=== PATIENT | female | born 1985 | race Caucasian/White ===

== ENCOUNTER 2017-03-28 16:51 | Emergency (ER) | payer SELFPAY ==
[~2017-03-28] VITALS: Ht 177.8 cm; Wt 89.8 kg
[2017-03-28 17:09] VITALS: BP 140/94
== END 2017-03-28 21:16 | disposition left against medical advice (07) ==
LOC: ER 17:21
DX: R51 Headache (principal); Z53.21 Procedure and treatment not carried out due to patient leaving prior to being seen by health care provider

== ENCOUNTER 2021-05-15 10:10 | Observation (INO) | payer OTHER ==
[~2021-05-15] VITALS: Ht 30.5 cm; Wt 0.5 kg
[2021-05-15] MEDS ORDERED: cefTRIAXone 1GM/50ML D5W 50 ML IV ONE (12:00)
[2021-05-15 12:29] LABS: Amphetamine Screen, Urine POSITIVE (NEGATIVE); Barbiturate Scree,Urine NEGATIVE (NEGATIVE); Benzodiazephine Screen, Urine NEGATIVE (NEGATIVE); Cannabinoid Screen, Urine POSITIVE (NEGATIVE); Cocaine Screen, Urine NEGATIVE (NEGATIVE); Opiate Scree,Urine NEGATIVE (NEGATIVE); Phencyclidine Screen, Urine NEGATIVE (NEGATIVE)
== END 2021-05-15 14:00 | disposition home or self-care (01) ==
LOC: LDRP 10:10
PROVIDERS: ADMIT Specialist; ATTEND Specialist
DX: O62.9 Abnormality of forces of labor, unspecified (principal); Z3A.35 35 weeks gestation of pregnancy; Z79.899 Other long term (current) drug therapy
CPT/HCPCS: 59025; 76805; 80307; 81002; 96365; G0378; J0696; J7030; 96360; 96361

== ENCOUNTER 2021-06-03 15:01 | Inpatient (IN) | payer MEDICAID, OTHER ==
[~2021-06-03] VITALS: Ht 177.8 cm; Wt 103.0 kg
[2021-06-03] MEDS: LACTATED RINGER'S 1,000 ML IV SCH ×2 (15:16→21:26)
[2021-06-03] MEDS ORDERED: LACTATED RINGER'S 1,000 ML IV ONE (15:30)
[2021-06-03] MEDS ORDERED: ceFAZolin 1GM/50ML 50 ML IV ONE (15:30)
[2021-06-03] MEDS ORDERED: hydrALAZINE HCL 20 MG/ML VL IV ONE (15:45)
[2021-06-03] MEDS ORDERED: TETRACAINE 1% INJ 2 ML VIAL IJ ONE (15:53)
[2021-06-03 16:08] LABS: Basophils # (auto) 0.1 10 ^3/uL (0-0.2); Eosinophils # (auto) 0.1 10 ^3/uL (0-0.8); Hemoglobin 9.8 g/dL (12.2-16.2); Lymphocytes # (auto) 1.7 10 ^3/uL (0.4-5.4)
[2021-06-03 16:09] LABS: Basophils % (auto) 0.9 % (0.0-2.0); Eosinophils % (auto) 0.9 % (0.0-7.0); Hematocrit 29.5 % (36.0-46.0); Lymphocytes % (auto) 15.2 % (10.0-50.0); Mean Corpuscular Hemoglobin 26.2 pg (28.0-32.0); Mean Corpuscular Hgb Conc. 33.1 g/dL (32.0-36.0); Mean Corpuscular Volume 79.1 fL (80.0-100.0); Monocytes # (auto) 0.7 10 ^3/uL (0-1.3); Monocytes % (auto) 5.8 % (0.0-12.0); Neutrophils # (auto) 8.8 10 ^3/uL (1.6-8.6); Neutrophils % (auto) 77.2 % (37.0-80.0); Nucleated Red Blood Cells % 0.1 %; Red Blood Cells 3.73 10^6/uL (4.0-5.20); Red Cell Distribution Width 17.4 % (11.8-14.3); White Blood Cell 11.4 10^3/uL (4.4-10.8)
[2021-06-03 16:10] LABS: Urine Bacteria NONE SEEN /hpf (None Seen); Urine Blood 2+ /uL (Negative); Urine Mucus FEW (None Seen); Urine Specific Gravity 1.032 (1.001-1.035); Urine WBC 2 /hpf (0 - 5)
[2021-06-03] MEDS ORDERED: fentaNYL CITRATE 100 MCG/2 ML VL ONE (16:15)
[2021-06-03] MEDS ORDERED: MORPHINE SULF PF 2 MG/2 ML SYRG ONE (16:15)
[2021-06-03] MEDS ORDERED: ONDANSETRON HCL 4 MG/2 ML VIAL ONE (16:16)
[2021-06-03] MEDS ORDERED: KETOROLAC TROMETH 30 MG/ML 1ML VIAL ONE (16:16)
[2021-06-03] MEDS ORDERED: oxyTOCIN 10 UNIT/ML 10ML VIAL ONE (16:16)
[2021-06-03] MEDS ORDERED: EPINEPHrine HCL 1 MG/1 ML AMP ONE (16:16)
[2021-06-03] MEDS ORDERED: GLYCOPYRROLATE 0.2 MG/ML 1ML VIAL ONE (16:16)
[2021-06-03 16:25] LABS: Albumin 2.1 g/dL (3.4-5.0); Calcium 7.9 mg/dL (8.5-10.1); Potassium 3.8 mmol/L (3.5-5.1)
[2021-06-03 16:26] LABS: Alcohol, Urine < 3.0 mg/dL (0-10); Barbiturate Scree,Urine NEGATIVE (NEGATIVE); Benzodiazephine Screen, Urine NEGATIVE (NEGATIVE); Cannabinoid Screen, Urine POSITIVE (NEGATIVE); Cocaine Screen, Urine NEGATIVE (NEGATIVE); Opiate Scree,Urine NEGATIVE (NEGATIVE); Phencyclidine Screen, Urine NEGATIVE (NEGATIVE)
[2021-06-03 16:28] LABS: Bilirubin, Total 0.7 mg/dL (0.2-1.0); Total Protein 6.2 g/dL (6.4-8.2)
[2021-06-03 16:34] LABS: Amphetamine Screen, Urine POSITIVE (NEGATIVE)
[2021-06-03] MEDS ORDERED: MIDAZOLAM HCL 2MG/2ML 2ml VIAL (1mg/ml) ONE (16:38)
[2021-06-03] MEDS ORDERED: MORPHINE SULFATE 4 MG/ML SYR/VIAL IV PRN (16:45)
[2021-06-03] MEDS ORDERED: NITROGLYCERIN 0.4 MG SL TAB SL PRN (16:45)
[2021-06-03 17:13] LABS: INR 0.92 (0.9-1.15); Partial Thromboplastin Time 23.7 sec (23.0-31.2)
[2021-06-03] MEDS ORDERED: PREN-96 PO (17:36)
[2021-06-03] MEDS ORDERED: HYDROmorphone HCL 2 MG/ML VL IV PRN (17:45)
[2021-06-03] MEDS ORDERED: ceFAZolin 1GM/50ML 50 ML IV SCH (17:45)
[2021-06-03] MEDS ORDERED: GUM (CHEWING) 1 GUM CHEW CHEW ONE (17:45)
[2021-06-03] MEDS ORDERED: ACETAMINOPHEN IV 1000 MG/100ML (10MG/ML) IV PRN (17:45)
[2021-06-03] MEDS ORDERED: ONDANSETRON HCL 4 MG/2 ML VIAL IV PRN ×2 (17:45→18:00)
[2021-06-03] MEDS ORDERED: LACTATED RINGER'S 1,000 ML IV SCH (17:45)
[2021-06-03] MEDS ORDERED: NALOXONE HCL 0.4 MG/ML VIAL IV PRN (18:00)
[2021-06-03] MEDS ORDERED: DexAMETHasone SOD PHOS 10MG/1ML VIAL INJ IV PRN (18:00)
[2021-06-03 20:22] VITALS: BP 156/97
[2021-06-03 21:22] VITALS: BP 173/111
[2021-06-03] MEDS: METOPROLOL TARTRATE 25 MG TAB PO SCH (21:26)
[2021-06-03] MEDS: ATORVASTATIN 20 MG TAB PO SCH (21:26)
[2021-06-03 22:00] VITALS: BP 140/100
[2021-06-03 22:22] VITALS: BP 164/99
[2021-06-03 23:22] VITALS: BP 163/110
[2021-06-03] MEDS: diphenhdrAMINE HCL 50 MG/1 ML VL IV PRN (23:29)
[2021-06-03] MEDS: KETOROLAC TROMETH 30 MG/ML 1ML VIAL IV PRN (23:29)
[2021-06-03] MEDS: ceFAZolin 1GM/50ML 50 ML IV SCH (23:31)
[2021-06-04] VITALS (23 sets, daily range): BP systolic 135–168; BP diastolic 73–127
[2021-06-04 05:06] LABS: Rubella Antibodies, IgG <0.90 index (Immune >0.99)
[2021-06-04] MEDS: diphenhdrAMINE HCL 50 MG/1 ML VL IV PRN (05:35)
[2021-06-04] MEDS: KETOROLAC TROMETH 30 MG/ML 1ML VIAL IV PRN (05:35)
[2021-06-04 05:41] LABS: Basophils # (auto) 0.1 10 ^3/uL (0-0.2); Basophils % (auto) 1.1 % (0.0-2.0); Eosinophils # (auto) 0.1 10 ^3/uL (0-0.8); Hemoglobin 9.6 g/dL (12.2-16.2); Red Cell Distribution Width 17.5 % (11.8-14.3); White Blood Cell 12.3 10^3/uL (4.4-10.8)
[2021-06-04 05:44] LABS: Hematocrit 28.1 % (36.0-46.0); Lymphocytes # (auto) 1.9 10 ^3/uL (0.4-5.4); Lymphocytes % (auto) 15.3 % (10.0-50.0); Mean Corpuscular Hgb Conc. 34.1 g/dL (32.0-36.0); Mean Corpuscular Volume 79.1 fL (80.0-100.0); Monocytes # (auto) 0.7 10 ^3/uL (0-1.3); Monocytes % (auto) 5.8 % (0.0-12.0); Neutrophils # (auto) 9.5 10 ^3/uL (1.6-8.6); Neutrophils % (auto) 76.8 % (37.0-80.0); Nucleated Red Blood Cells % 0.1 %; Red Blood Cells 3.55 10^6/uL (4.0-5.20)
[2021-06-04 07:06] LABS: RPR Non Reactive (Non Reactive)
[2021-06-04] MEDS: LACTATED RINGER'S 1,000 ML IV SCH (07:30)
[2021-06-04] MEDS ORDERED: SIMETHICONE 80 MG CHEWABLE TABLET PO PRN (08:30)
[2021-06-04] MEDS: ceFAZolin 1GM/50ML 50 ML IV SCH ×2 (09:28→15:17)
[2021-06-04] MEDS: ASPirin 81 mg TAB PO SCH (09:29)
[2021-06-04] MEDS: DOCUSATE SOD 100 MG CAP PO SCH ×2 (09:30→21:52)
[2021-06-04] MEDS: METOPROLOL TARTRATE 25 MG TAB PO SCH ×2 (09:30→21:53)
[2021-06-04] MEDS ORDERED: FUROSEMIDE 40 MG/4 ML VIAL IV ONE (12:00)
[2021-06-04] MEDS ORDERED: POTASSIUM CHL 20 Meq TABLET PO ONE (12:00)
[2021-06-04] MEDS: HYDROcodone-ACET 5/325MG TAB PO PRN ×3 (12:23→21:57)
[2021-06-04] MEDS ORDERED: ALBUTEROL SULF 2.5 MG/0.5ML(0.5%) NEB SOLN NEB PRN (13:30)
[2021-06-04] MEDS: MORPHINE SULFATE INJECTION 2 MG/ML SYRG IV PRN (15:17)
[2021-06-04] MEDS ORDERED: CARVEDILOL 3.125 MG TAB PO ONE (17:30)
[2021-06-04] MEDS ORDERED: LISINOPRIL 10 MG TAB PO ONE (17:30)
[2021-06-04] MEDS: hydrALAZINE HCL 20 MG/ML VL IV PRN (17:58)
[2021-06-04] MEDS: ALBUTEROL SULF 2.5 MG/0.5ML(0.5%) NEB SOLN NEB SCH ×2 (19:36→22:58)
[2021-06-04] MEDS: IPRATROPIUM BROM 0.5 MG/2.5ML INH SOL NEB SCH ×2 (19:36→22:58)
[2021-06-04] MEDS: ATORVASTATIN 20 MG TAB PO SCH (21:51)
[2021-06-04] MEDS: CARVEDILOL 3.125 MG TAB PO SCH (22:32)
[2021-06-05] VITALS (30 sets, daily range): BP systolic 115–174; BP diastolic 71–126
[2021-06-05] MEDS: IPRATROPIUM BROM 0.5 MG/2.5ML INH SOL NEB SCH ×6 (02:37→22:21)
[2021-06-05] MEDS: ALBUTEROL SULF 2.5 MG/0.5ML(0.5%) NEB SOLN NEB SCH ×6 (02:37→22:21)
[2021-06-05] MEDS: HYDROcodone-ACET 5/325MG TAB PO PRN ×4 (02:51→20:28)
[2021-06-05] MEDS: hydrALAZINE HCL 20 MG/ML VL IV PRN ×3 (04:52→23:16)
[2021-06-05] MEDS: MORPHINE SULFATE INJECTION 2 MG/ML SYRG IV PRN ×2 (05:01→09:49)
[2021-06-05 05:53] LABS: Basophils # (auto) 0.1 10 ^3/uL (0-0.2); Basophils % (auto) 0.4 % (0.0-2.0); Eosinophils # (auto) 0.1 10 ^3/uL (0-0.8); Monocytes # (auto) 0.7 10 ^3/uL (0-1.3); Nucleated Red Blood Cells % 0.3 %
[2021-06-05 05:57] LABS: Eosinophils % (auto) 0.6 % (0.0-7.0); Hematocrit 28.5 % (36.0-46.0); Hemoglobin 9.7 g/dL (12.2-16.2); Lymphocytes # (auto) 1.4 10 ^3/uL (0.4-5.4); Mean Corpuscular Hemoglobin 26.8 pg (28.0-32.0); Mean Corpuscular Hgb Conc. 34.2 g/dL (32.0-36.0); Mean Corpuscular Volume 78.3 fL (80.0-100.0); Monocytes % (auto) 4.8 % (0.0-12.0); Neutrophils # (auto) 12.9 10 ^3/uL (1.6-8.6); Neutrophils % (auto) 85.2 % (37.0-80.0); Red Blood Cells 3.64 10^6/uL (4.0-5.20); Red Cell Distribution Width 17.9 % (11.8-14.3); White Blood Cell 15.1 10^3/uL (4.4-10.8)
[2021-06-05 06:19] LABS: BUN/Creatinine Ratio 22.5; Calcium 7.5 mg/dL (8.5-10.1); Potassium 3.7 mmol/L (3.5-5.1)
[2021-06-05] MEDS: DOCUSATE SOD 100 MG CAP PO SCH ×2 (09:47→22:20)
[2021-06-05] MEDS: ASPirin 81 mg TAB PO SCH (09:47)
[2021-06-05] MEDS: METOPROLOL TARTRATE 25 MG TAB PO SCH (09:48)
[2021-06-05] MEDS: CARVEDILOL 3.125 MG TAB PO SCH (09:48)
[2021-06-05] MEDS ORDERED: LISINOPRIL 10 MG TAB PO SCH (10:00)
[2021-06-05 10:12] LABS: Basophils # (auto) 0.2 10 ^3/uL (0-0.2); Eosinophils # (auto) 0.1 10 ^3/uL (0-0.8); Hemoglobin 9.6 g/dL (12.2-16.2); Lymphocytes # (auto) 1.5 10 ^3/uL (0.4-5.4); Neutrophils % (auto) 82.8 % (37.0-80.0)
[2021-06-05 10:14] LABS: Basophils % (auto) 1.1 % (0.0-2.0); Eosinophils % (auto) 0.7 % (0.0-7.0); Hematocrit 28.8 % (36.0-46.0); Lymphocytes % (auto) 10.1 % (10.0-50.0); Mean Corpuscular Hemoglobin 26.4 pg (28.0-32.0); Mean Corpuscular Hgb Conc. 33.3 g/dL (32.0-36.0); Mean Corpuscular Volume 79.4 fL (80.0-100.0); Monocytes # (auto) 0.8 10 ^3/uL (0-1.3); Monocytes % (auto) 5.3 % (0.0-12.0); Neutrophils # (auto) 12.6 10 ^3/uL (1.6-8.6); Nucleated Red Blood Cells % 0.3 %; Red Blood Cells 3.62 10^6/uL (4.0-5.20); Red Cell Distribution Width 17.7 % (11.8-14.3); White Blood Cell 15.2 10^3/uL (4.4-10.8)
[2021-06-05] MEDS ORDERED: LISINOPRIL 10 MG TAB PO ONE (10:15)
[2021-06-05 10:35] LABS: Albumin 1.8 g/dL (3.4-5.0); Calcium 7.9 mg/dL (8.5-10.1); Potassium 3.4 mmol/L (3.5-5.1)
[2021-06-05 10:38] LABS: BUN/Creatinine Ratio 17.1; Bilirubin, Total 0.5 mg/dL (0.2-1.0); Total Protein 5.7 g/dL (6.4-8.2)
[2021-06-05 10:45] LABS: INR 0.92 (0.9-1.15); Partial Thromboplastin Time 25.5 sec (23.0-31.2)
[2021-06-05] MEDS ORDERED: FUROSEMIDE 20 MG/2 ML VIAL IV ONE (11:30)
[2021-06-05] MEDS ORDERED: POTASSIUM CHL 20 Meq TABLET PO ONE ×2 (11:30→12:30)
[2021-06-05] MEDS ORDERED: LORazepam 2MG/ML-1ML VIAL IV ONE (11:45)
[2021-06-05] MEDS ORDERED: MAGNESIUM SULFATE 100 ML IV ONE (11:45)
[2021-06-05] MEDS ORDERED: MAGNESIUM SULFATE 40MG/ML 1,000 ML IV SCH (11:45)
[2021-06-05 13:54] LABS: Urine WBC None Seen /hpf (0 - 5)
[2021-06-05] MEDS: SODIUM CHLORIDE 0.9% 1,000 ML IV SCH (14:04)
[2021-06-05 14:09] LABS: Urine Bacteria NONE SEEN /hpf (None Seen); Urine Blood Negative /uL (Negative); Urine Specific Gravity 1.008 (1.001-1.035)
[2021-06-05 14:31] LABS: Protein, Urine 8.9 mg/dL (0.0-11.9)
[2021-06-05 16:13] LABS: Hepatitis A Ab IgM Negative; Hepatitis B Core IgM Negative; Hepatitis B Surface Antigen Negative (Negative); Hepatitis C Antibody Negative (Negative)
[2021-06-05] MEDS: IBUPROFEN 800 MG TAB PO PRN (18:07)
[2021-06-05] MEDS: ATORVASTATIN 20 MG TAB PO SCH (22:20)
[2021-06-05] MEDS: CARVEDILOL 12.5 MG TAB PO SCH (22:20)
[2021-06-06] VITALS (27 sets, daily range): BP systolic 123–159; BP diastolic 75–117
[2021-06-06] MEDS: HYDROcodone-ACET 5/325MG TAB PO PRN ×3 (01:18→21:06)
[2021-06-06] MEDS: IPRATROPIUM BROM 0.5 MG/2.5ML INH SOL NEB SCH ×7 (02:15→22:00)
[2021-06-06] MEDS: ALBUTEROL SULF 2.5 MG/0.5ML(0.5%) NEB SOLN NEB SCH ×7 (02:15→22:00)
[2021-06-06] MEDS: LORazepam 2MG/ML-1ML VIAL IV PRN ×3 (02:28→22:40)
[2021-06-06] MEDS: IBUPROFEN 800 MG TAB PO PRN (03:35)
[2021-06-06 05:10] LABS: Hemoglobin 9.2 g/dL (12.2-16.2); Lymphocytes # (auto) 1.6 10 ^3/uL (0.4-5.4); Monocytes # (auto) 0.8 10 ^3/uL (0-1.3); Neutrophils # (auto) 10.7 10 ^3/uL (1.6-8.6)
[2021-06-06 05:13] LABS: Basophils # (auto) 0.1 10 ^3/uL (0-0.2); Basophils % (auto) 0.8 % (0.0-2.0); Eosinophils # (auto) 0.1 10 ^3/uL (0-0.8); Hematocrit 26.9 % (36.0-46.0); Lymphocytes % (auto) 11.6 % (10.0-50.0); Mean Corpuscular Hemoglobin 27.1 pg (28.0-32.0); Mean Corpuscular Hgb Conc. 34.4 g/dL (32.0-36.0); Mean Corpuscular Volume 78.8 fL (80.0-100.0); Monocytes % (auto) 6.3 % (0.0-12.0); Neutrophils % (auto) 80.3 % (37.0-80.0); Nucleated Red Blood Cells % 0.4 %; Red Blood Cells 3.42 10^6/uL (4.0-5.20); Red Cell Distribution Width 17.9 % (11.8-14.3); White Blood Cell 13.4 10^3/uL (4.4-10.8)
[2021-06-06 05:31] LABS: BUN/Creatinine Ratio 23.8; Calcium 6.8 mg/dL (8.5-10.1); Potassium 4.1 mmol/L (3.5-5.1)
[2021-06-06 06:07] LABS: RPR Non Reactive (Non Reactive)
[2021-06-06] MEDS: hydrALAZINE HCL 20 MG/ML VL IV PRN (08:05)
[2021-06-06] MEDS: DOCUSATE SOD 100 MG CAP PO SCH ×2 (10:27→22:38)
[2021-06-06] MEDS: ASPirin 81 mg TAB PO SCH (10:28)
[2021-06-06] MEDS: CARVEDILOL 12.5 MG TAB PO SCH ×2 (10:29→22:39)
[2021-06-06] MEDS: POTASSIUM CHL 20 Meq TABLET PO SCH (10:44)
[2021-06-06] MEDS: FUROSEMIDE 20 MG/2 ML VIAL IV SCH (10:46)
[2021-06-06] MEDS ORDERED: hydrALAZINE HCL 25 MG TAB ONE (12:10)
[2021-06-06] MEDS ORDERED: NICOTINE 21MG/24 HR TOPICAL PATCH TD ONE (12:15)
[2021-06-06] MEDS ORDERED: hydrALAZINE HCL 25 MG TAB PO ONE (12:15)
[2021-06-06] MEDS: LISINOPRIL 10 MG TAB PO SCH (12:20)
[2021-06-06] MEDS: SODIUM CHLORIDE 0.9% 1,000 ML IV SCH (12:45)
[2021-06-06] MEDS: hydrALAZINE HCL 25 MG TAB PO SCH (22:38)
[2021-06-06] MEDS: ATORVASTATIN 20 MG TAB PO SCH (22:39)
[2021-06-07] MEDS: ALBUTEROL SULF 2.5 MG/0.5ML(0.5%) NEB SOLN NEB SCH ×4 (02:00→14:25)
[2021-06-07] MEDS: IPRATROPIUM BROM 0.5 MG/2.5ML INH SOL NEB SCH ×4 (02:00→14:25)
[2021-06-07] MEDS: HYDROcodone-ACET 5/325MG TAB PO PRN ×2 (02:10→08:57)
[2021-06-07 05:00] VITALS: BP 137/88
[2021-06-07 05:53] LABS: Potassium 3.9 mmol/L (3.5-5.1)
[2021-06-07] MEDS: hydrALAZINE HCL 25 MG TAB PO SCH ×2 (06:01→15:17)
[2021-06-07 06:04] LABS: BUN/Creatinine Ratio 26.8; Calcium 7.4 mg/dL (8.5-10.1)
[2021-06-07] MEDS ORDERED: guaiFENesin-DM 100/10mg/5ml SYR PO PRN (06:45)
[2021-06-07] MEDS: DOCUSATE SOD 100 MG CAP PO SCH (08:56)
[2021-06-07] MEDS: POTASSIUM CHL 20 Meq TABLET PO SCH (08:56)
[2021-06-07] MEDS: ASPirin 81 mg TAB PO SCH (08:56)
[2021-06-07] MEDS: FUROSEMIDE 20 MG/2 ML VIAL IV SCH (08:56)
[2021-06-07] MEDS: CARVEDILOL 12.5 MG TAB PO SCH (08:58)
[2021-06-07] MEDS: LISINOPRIL 10 MG TAB PO SCH (08:58)
[2021-06-07 09:00] VITALS: BP 136/91
[2021-06-07] MEDS ORDERED: NICOTINE 21MG/24 HR TOPICAL PATCH TD SCH (10:00)
[2021-06-07] MEDS: SODIUM CHLORIDE 0.9% 1,000 ML IV SCH (12:45)
[2021-06-07 13:00] VITALS: BP 144/93
[2021-06-07 15:37] VITALS: BP 144/93
[2021-06-07] MEDS: LORazepam 2MG/ML-1ML VIAL IV PRN (15:52)
[2021-06-07 17:00] VITALS: BP_SYST 144; BP_SYST 159; BP_DIAS 104; BP_DIAS 93
== END 2021-06-07 18:00 | disposition short-term general hospital (02) | DRG 540 ==
LOC: LDRP 15:01 → OBSVTOIN 15:30 → TELE-WESTW 20:22
PROVIDERS: ADMIT Specialist; ATTEND Internal Medicine
PROC: 10D00Z1 Extraction of Products of Conception, Low, Open Approach (ICD-10-PCS; principal; 2021-06-03 16:21)
DX: O77.0 Labor and delivery complicated by meconium in amniotic fluid (principal); I21.4 Non-ST elevation (NSTEMI) myocardial infarction; I50.43 Acute on chronic combined systolic (congestive) and diastolic (congestive) heart failure; O99.42 Diseases of the circulatory system complicating childbirth; O99.324 Drug use complicating childbirth; E66.9 Obesity, unspecified; O99.214 Obesity complicating childbirth; D64.9 Anemia, unspecified; I25.10 Atherosclerotic heart disease of native coronary artery without angina pectoris; O34.211 Maternal care for low transverse scar from previous cesarean delivery; O16.4 Unspecified maternal hypertension, complicating childbirth; O99.02 Anemia complicating childbirth; F17.210 Nicotine dependence, cigarettes, uncomplicated; O99.334 Smoking (tobacco) complicating childbirth; O14.94 Unspecified pre-eclampsia, complicating childbirth; O69.81X0 Labor and delivery complicated by cord around neck, without compression, not applicable or unspecified; F19.10 Other psychoactive substance abuse, uncomplicated; Z20.822 Contact with and (suspected) exposure to COVID-19; E78.5 Hyperlipidemia, unspecified; O75.89 Other specified complications of labor and delivery; E87.6 Hypokalemia; Z3A.38 38 weeks gestation of pregnancy; Z37.0 Single live birth; Z91.19 Patient's noncompliance with other medical treatment and regimen; Z95.5 Presence of coronary angioplasty implant and graft
CPT/HCPCS: 36415; 59025; 71045; 80048; 80053; 80061; 80074; 80307; 81001; 81002; 82570; 83735; 83880; 84156; 84484; 84550; 85025; 85379; 85610; 85730; 86592; 86703; 86762; 86850; 86900; 86901; 86920; 87340; 87426; 93005; 93306; 94640; 94760; 96360; 96361; 96374; G0378; J0171; J0690; J1885; J2250; J2405; J2590

== ENCOUNTER 2024-10-15 04:06 | Inpatient (IN) | payer MEDICAID ==
[~2024-10-15] VITALS: Ht 167.6 cm; Wt 109.0 kg
[~2024-10-15 04:06] MED LIST: PREN-96 PO
--- NOTE | 2024-10-15 04:14 | ECG ---
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
[2024-10-15 04:26] VITALS: PULSE 98; RESP 20; O2SAT 93
[2024-10-15 04:31] LABS: Basophils # (auto) 0.1 10 ^3/uL (0-0.2); Basophils % (auto) 0.9 % (0.0-2.0); Eosinophils # (auto) 0.2 10 ^3/uL (0-0.8); Eosinophils % (auto) 1.7 % (0.0-7.0); Hematocrit 39.7 % (36.0-46.0); Hemoglobin 13.3 g/dL (12.2-16.2); Lymphocytes # (auto) 1.6 10 ^3/uL (0.4-5.4); Lymphocytes % (auto) 17.9 % (10.0-50.0); Mean Corpuscular Hemoglobin 30.7 pg (28.0-32.0); Mean Corpuscular Hgb Conc. 33.5 g/dL (32.0-36.0); Mean Corpuscular Volume 91.5 fL (80.0-100.0); Monocytes # (auto) 0.4 10 ^3/uL (0-1.3); Monocytes % (auto) 4.8 % (0.0-12.0); Neutrophils # (auto) 6.6 10 ^3/uL (1.6-8.6); Neutrophils % (auto) 74.7 % (37.0-80.0); Platelet Count (auto) 230 10^3/uL (140-450); Red Blood Cells 4.34 10^6/uL (4.0-5.20); Red Cell Distribution Width 14.9 % (11.8-14.3); White Blood Cell 8.9 10^3/uL (4.4-10.8)
[2024-10-15 04:50] LABS: Potassium 3.9 mmol/L (3.5-5.1); Sodium 141 mmol/L (136-145)
[2024-10-15 04:51] LABS: Anion Gap 9 (5-15); Calcium 9.4 mg/dL (8.7-10.4); Carbon Dioxide 22 mmol/L (20-31)
[2024-10-15 04:53] LABS: INR 1.04 (0.9-1.15)
[2024-10-15 04:56] LABS: BUN/Creatinine Ratio 15.9 (10.0-20.0); Blood Urea Nitrogen 14 mg/dL (9-23)
[2024-10-15] MEDS: NITROGLYCERIN 0.4 MG SL TAB SL ONE (04:58)
[2024-10-15 05:24] LABS: Chloride 110 mmol/L (98-107); Glucose 117 mg/dL (74-106)
[2024-10-15] MEDS ORDERED: HEPARIN SODIUM (PORCINE) 5000 UNITS/ML 1ML VIAL IV ONE (05:30)
--- NOTE | 2024-10-15 05:41 | ED.PDOC ---
History of Present Illness HPI Comments 38F with HTN and CAD s/p PCI x5 presents with 2 days of intermittent chest pain worse the last 4 hours. Patient reports she used meth yesterday. She also reports that she has not taken any of her medicines for a 5-6 months. The pain is substernal 8/10 nonradiating and non exertional in nature. EMS gave her asa and nitro and she reports her pain has improved. She denies any fever chills sick contacts or recent travel Chief Complaint: Chest Pain Time Seen by MD: 04:14 Reviewed Notes: Nurses Notes Allergies: Coded Allergies: NO KNOWN ALLERGIES (Unverified , 03/28/17) Home Meds Reported Medications Vit W/ Ferrous Fumara ( One Daily) Daily Tab, TAB PO DAILY, #90 TAB 3 Refills 06/03/21 Information Source: Patient, Emergency Med Personnel Mode of Arrival: EMS Past Medical History PAST MEDICAL HISTORY: CAD, HTN Cardiovascular: reports: chest pain All Other Systems: Reviewed and Negative Physical Exam General Appearance: No Apparent Distress, Normal HEENT: Normal ENT Inspection, Pharynx Normal, TMs Normal Neck: Full Range of Motion, Non-Tender, Normal, Normal Inspection Respiratory: Chest Non-Tender, Lungs Clear, No Accessory Muscle Use, No Respiratory Distress, Normal Breath Sounds Cardiovascular: No Edema, No JVD, No Murmur, No Gallop, Normal Peripheral Pulses, Regular Rate/Rhythm Breast Exam: Deferred Gastrointestinal: No Organomegaly, Non Tender, No Pulsatile Mass, Normal Bowel Sounds, Soft Genitalia: Deferred Pelvic: Deferred Rectal: Deferred Extremities: No calf tenderness, Normal capillary refill, Normal inspection, Normal range of motion, Non-tender, No pedal edema Musculoskeletal : Apperance: Normal Neurologic: Alert, development vice president II-XII nml as Tested, No Motor Deficits, Normal Affect, Normal Mood, No Sensory Deficits Cerebellar Function: NOT DONE Reflexes: NOT DONE Skin: Dry, Normal Color, Warm Lymphatic: No Adenopathy Was a procedure done? Was a procedure done?: No EKG EKG : Pulse Rate (adult): 100 [place]: Normal Cardiac Rhythm: ST Block: IVCD Hypertrophy: LVH ST: Old, Ischemia Differential Dx Considerations may include: ACS, PE, dissection, muscle strain X-Ray, Labs, Meds, VS Vital Signs Date Time Temp Pulse Resp B/P (MAP) Pulse Ox O2 Delivery O2 Flow Rate FiO2 10/15/24 05:17 96 10/15/24 04:58 170/103 10/15/24 04:52 98 Nasal Cannula* 2 28 10/15/24 04:26 98 20 93 Room Air* 0 21 10/15/24 04:26 98.4 104 22 175/108 (130) 97 98.4 10/15/24 04:13 100 10/15/24 04:10 98.0 98 15 169/71 (103) 95 Lab Test 10/15/24 05:23 10/15/24 04:25 10/15/24 04:14 Range/Units Troponin I High Sensitivity Pending 60 *H </=34 ng/L Prothrombin Time 11.0 9.3-11.8 sec Prothrombin Time INR 1.04 0.9-1.15 White Blood Count Pending Red Blood Count Pending Hemoglobin Pending Hematocrit Pending Mean Corpuscular Volume Pending Mean Corpuscular Hemoglobin Pending Mean Corpuscular Hemoglobin Concent Pending Red Cell Distribution Width Pending Platelet Count Pending Mean Platelet Volume Pending Neutrophils (%) (Auto) Pending Lymphocytes (%) (Auto) Pending Monocytes (%) (Auto) Pending Basophils (%) (Auto) Pending Neutrophils # (Auto) Pending Lymphocytes # (Auto) Pending Monocytes # (Auto) Pending Sodium Level 141 136-145 mmol/L Potassium Level 3.9 3.5-5.1 mmol/L Chloride Level 110 H 98-107 mmol/L Carbon Dioxide Level 22 20-31 mmol/L Anion Gap 9 5-15 Blood Urea Nitrogen 14 9-23 mg/dL Creatinine 0.88 0.550-1.02 mg/dL Glomerular Filtration Rate Calc 87 >90 mL/min BUN/Creatinine Ratio 15.9 10.0-20.0 Serum Glucose 117 H 74-106 mg/dL Calcium Level 9.4 8.7-10.4 mg/dL B-Type Natriuretic Peptide Pending Current Medications Medications (Trade) Dose Ordered Sig/Jose Route Start Time Stop Time Status Last Admin Nitroglycerin (Ntrostat Sublingual) 0.4 mg ONCE ONCE SL 10/15/24 04:45 10/15/24 04:52 DC 10/15/24 04:58 Time of 1ST Reevaluation: 05:39 (Patient reports her chest pain is improving.) Reevaluation 1ST: Improved Consultation: Cardiology Patient Education/Counseling: Diagnosis, Treatment Family Education/Counseling: No Family Present Departure 1 Departure Time of Disposition: 05:39 (Patient presented with chest pain that was concerning for possible STEMI, ACS, PE, Pneumonia, Muscle Strain, COPD, Dis section. Data: 1. I ordered and reviewed the result of at least 3 labs including a CBC, BMP, and Troponin. 2. I independently interpreted the following tests: EKG which shows likely old ischemia and Chest X-ray which shows benign chest.Risk:This patient has a high risk of morbidity due to further diagnostic testing or treatment and may suffer from an acute cardiac or respiratory di sorder. Workup reveals concern for ACS and patient should be admitted for further workup and possible expert consultation. ) Impression: Primary Impression: Acute chest pain Disposition: 09 ADMITTED INPATIENT Admit to: Med Surg Condition: Serious Critical Care Note Critical Care Time?: Yes Critical care comment: Acute chest pain Authorized and Performed by: Maco Castillo MD Total critical care time: Approximately 34 minutes Due to a high probability of clinically significant, life threatening deterioration, the patient required my highest level of preparedness to intervene emergently and I personally spent this critical care time directly and personally managing the patient. This critical care time included obtaining a history; examining the patient; pulse oximetry; ordering and review of studies; arranging urgent treatment with development of a management plan; evaluation of patient's response to treatment; frequent reassessment; and, discussions with ot her providers. This critical care time was performed to assess and manage the high probability of imminent, life-threatening deterioration that could result in multi-organ failure. It was exclusive of separately billable procedures and treating other patients and teaching time. Please see my other sections and the rest of the note for further information on patient assessment and treatment. Stability Stability form required: No Heart Score Heart Score: Heart Score Response (Comments) Value History Moderate Suspicious [address]-Deviation 2 Age <45 0 Risk Factors 1 or 2 risk factors 1 Troponin 1-2 x's Normal limit 1 Total 5 MACO CASTILLO MD Oct 15, 2024 05:41
--- NOTE | 2024-10-15 06:06 | DVH ---
CHEST RADIOGRAPH Indication: chest pain Technique: Single frontal view of the chest was obtained Comparison: CHEST XRAY 1 VIEW on DOS: 06/04/21, CHEST PORTABLE on DOS: 06/03/21 FINDINGS: Lines and Tubes: None Lungs: No focal consolidation. Pleura: No effusion. No pneumothorax. Cardiomediastinal contours: Cardiomegaly Bones: No acute osseous abnormality. IMPRESSION: CArdiomegaly with Mild CHF
[2024-10-15 07:09] LABS: INR 1.04 (0.9-1.15); Partial Thromboplastin Time 26.1 SEC (24.5-34.5)
[2024-10-15 07:20] VITALS: PULSE 107; RESP 28; O2SAT 95
[2024-10-15] MEDS ORDERED: ACETAMINOPHEN 325 MG TAB PO PRN (08:15)
[2024-10-15] MEDS ORDERED: MORPHINE SULFATE INJ 2 MG/ml SYRG IV PRN (08:15)
[2024-10-15] MEDS ORDERED: NITROGLYCERIN 0.4 MG SL TAB SL PRN ×2 (08:15)
[2024-10-15] MEDS ORDERED: MORPHINE SULFATE 4 MG/ML SYR/VIAL IV PRN (08:15)
[2024-10-15] MEDS ORDERED: hydrALAZINE HCL 20 MG/ML VL IV PRN (08:15)
[2024-10-15] MEDS ORDERED: LORazepam 0.5 MG TAB PO PRN (08:15)
[2024-10-15] MEDS ORDERED: ONDANSETRON HCL 4 MG/2 ML VIAL IV PRN (08:15)
[2024-10-15] MEDS: MAALOX PLUS or MAALOX 30 ML PO ONE (08:15)
[2024-10-15] MEDS: HEPARIN SODIUM (PORCINE) 5000 UNITS/ML 1ML VIAL IV ONE ×2 (09:16→17:27)
[2024-10-15] MEDS: HEPARIN DRIP/D5W 100UNITS/ML 250 ML IV SCH (09:18)
--- NOTE | 2024-10-15 09:38 | DVHHP2 ---
History of Present Illness Reason for Visit: Chest pain History of Present Illness Estefani Saha is a 38-year-old female with past medical history of hypertension and CAD status post PCI x5 presents to the ED with chest pain, cough, and shortness of breath x2 days. Patient reports her chest pain as an 8/10 nonradiating. Patient reports that she used methamphetamine yesterday and she has been noncompliant with her medications for the last 5-6 months. Patient reports that she has no insurance which is why she has not been able to obtain her medications and take her medications. Patient denies fever, chills, abdominal pain, back pain, nausea, vomiting, headache, lightheadedness and dizziness. Cardiovascular: CAD, HTN Past Surgical History PCI Family History Heart disease grandmother Smoke: <1 pack per day ALCOHOL: none Drugs: Other (Methamphetamine) Lives: with Family Domestic Violence: Neg Review of Systems Constitutional: No: Fever, Chills, Sweats, Weakness, Malaise, Other Eyes: No: Pain, Vision change, Conjunctivae inflammation, Eyelid inflammation, Other, Redness ENT: No: Ear pain, Ear discharge, Nose pain, Nose discharge, Nose congestion, Mouth pain, Mouth swelling, Throat pain, Throat swelling, Other Respiratory: Cough, Shortness of breath; No: Dry, SOB with excertion, Wheezing, Hemoptysis, Pleuritic Pain, Sputum, Wheezing, Other Cardiovascular: Chest Pain; No: Palpitations, Orthopnea, Paroxysmal Noc. Dyspnea, Edema, Lt Headedness, Other Gastrointestinal: No: Nausea, Vomiting, Abdominal Pain, Diarrhea, Constipation, Melena, Hematochezia, Other Genitourinary: No Dysuria, No Frequency, No Incontinence, No Hematuria, No Retention, No Other Musculoskeletal: No: other, neck pain, shoulder pain, arm pain, back pain, hand pain, leg pain, foot pain Skin: No: Rash, Lesions, Jaundice, Bruising, Other Neurological: No: Weakness, Numbness, Incoordination, Change in speech, Confusion, Seizures, Other Allergies: Coded Allergies: NO KNOWN ALLERGIES (Unverified , 03/28/17) Medications Current Medications Medications Dose Ordered Sig/Jose Route Start Time Stop Time Status Last Admin Dose Admin Heparin Sodium/ Dextrose 250 ml @ 8.64 mls/hr Q24H IV 10/15/24 05:30 UNV Exam Vital Signs Vital Signs Date Time Temp Pulse Resp B/P (MAP) Pulse Ox O2 Delivery O2 Flow Rate FiO2 10/15/24 07:14 108 10/15/24 06:58 22 153/115 (128) 95 10/15/24 04:52 Nasal Cannula* 2 28 10/15/24 04:26 98.4 98.4 General Appearance: Alert, Oriented X3, Cooperative, mild distress HEENT: Atraumatic, PERRLA, EOMI, Mucous membr. moist/pink Respiratory: Normal air movement Cardiovascular: Normal S1, Normal S2, No murmurs Abdominal: Normal bowel sounds, Soft, No tenderness, No hepatospenomegaly, No masses Extremities: No clubbing, No cyanosis, No edema, Normal pulses, No tenderness/swelling Skin: No rashes, No breakdown, No significant lesion Neuro: Normal gait, Normal speech, Strength at 5/5 X4 ext, Normal tone, Sensation intact Psych/Mental Status: Mental status NL, Mood NL Labs/Xrays Labs Test 10/15/24 05:35 10/15/24 04:14 Range/Units Prothrombin Time 11.0 9.3-11.8 sec Prothrombin Time INR 1.04 0.9-1.15 Activated Partial Thromboplast Time 26.1 24.5-34.5 SEC Troponin I High Sensitivity 2179 *H </=34 ng/L White Blood Count 8.9 4.4-10.8 10^3/uL Red Blood Count 4.34 4.0-5.20 10^6/uL Hemoglobin 13.3 12.2-16.2 g/dL Hematocrit 39.7 36.0-46.0 % Mean Corpuscular Volume 91.5 80.0-100.0 fL Mean Corpuscular Hemoglobin 30.7 28.0-32.0 pg Mean Corpuscular Hemoglobin Concent 33.5 32.0-36.0 g/dL Red Cell Distribution Width 14.9 H 11.8-14.3 % Platelet Count 230 140-450 10^3/uL Mean Platelet Volume 8.2 6.9-10.8 fL Neutrophils (%) (Auto) 74.7 37.0-80.0 % Lymphocytes (%) (Auto) 17.9 10.0-50.0 % Monocytes (%) (Auto) 4.8 0.0-12.0 % Eosinophils (%) (Auto) 1.7 0.0-7.0 % Basophils (%) (Auto) 0.9 0.0-2.0 % Neutrophils # (Auto) 6.6 1.6-8.6 10 ^3/uL Lymphocytes # (Auto) 1.6 0.4-5.4 10 ^3/uL Monocytes # (Auto) 0.4 0-1.3 10 ^3/uL Eosinophils # (Auto) 0.2 0-0.8 10 ^3/uL Basophils # (Auto) 0.1 0-0.2 10 ^3/uL Nucleated Red Blood Cells 0.0 % Sodium Level 141 136-145 mmol/L Potassium Level 3.9 3.5-5.1 mmol/L Chloride Level 110 H 98-107 mmol/L Carbon Dioxide Level 22 20-31 mmol/L Anion Gap 9 5-15 Blood Urea Nitrogen 14 9-23 mg/dL Creatinine 0.88 0.550-1.02 mg/dL Glomerular Filtration Rate Calc 87 >90 mL/min BUN/Creatinine Ratio 15.9 10.0-20.0 Serum Glucose 117 H 74-106 mg/dL Calcium Level 9.4 8.7-10.4 mg/dL B-Type Natriuretic Peptide 681.78 0-100 pg/mL CHEST RADIOGRAPH Indication: chest pain Technique: Single frontal view of the chest was obtained Comparison: CHEST XRAY 1 VIEW on DOS: 06/04/21, CHEST PORTABLE on DOS: 06/03/21 FINDINGS: Lines and Tubes: None Lungs: No focal consolidation. Pleura: No effusion. No pneumothorax. Cardiomediastinal contours: Cardiomegaly Bones: No acute osseous abnormality. 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 # CAD s/p PCI ECHO monitor I&O daily weight TSH Lipid panel A1C lasix beta guero toprol magnesium level UA CXR in am #HTN cici inhibitor hydralazine prn monitor #methamphetamine abuse Last used yesterday Counseled on cessation of methamphetamine abuse UDS #tobacco dependence Counseled on smoking cessation nicotine patch #medical noncompliance Counseled on necessity of medical compliance #overweight Counseled on diet, exercise, and lifestyle changes DVT ppx Discussed plan with patient and nurse Plan discussed with: Patient Date of Service: Oct 15, 2024 Billing Provider: SARAH MCKNIGHT Common Visit Codes: [id number] INP/OBS CARE (MOD) SARAH MCKNIGHT Oct 15, 2024 09:38
[2024-10-15] MEDS: NICOTINE 7MG/24HR TOPICAL PATCH TD SCH (10:00)
[2024-10-15] MEDS: LISINOPRIL 5 MG TAB PO SCH (11:08)
[2024-10-15] MEDS: DOCUSATE SOD 100 MG CAP PO SCH (11:08)
[2024-10-15] MEDS: FUROSEMIDE 20 MG/2 ML VIAL IV SCH (11:09)
[2024-10-15] MEDS: ASPirin 81 mg TAB PO SCH (11:10)
[2024-10-15] MEDS: METOPROLOL SUCCINATE XL 50 MG TAB PO SCH (11:19)
--- NOTE | 2024-10-15 13:55 | DVHSR ---
APPROVED REPORT EXAM: Two-dimensional and M-mode echocardiogram with Doppler and color Doppler. Blood Pressure: 140/112 mmHg INDICATION Chest Pain RISK FACTORS Height: 5'6", Weight: 158 DIMENSIONS LVDd7.1 (3.8-5.7cm)LA (2D)5.3 (1.9-4.0cm)Aortic Root3.2 (2.0-3.7cm) LVDs6.1 (2.5-4.0cm)LA (MM) (1.9-4.0cm)Aortic Cusp Exc1.7 (1.5-2.0cm) EF (%) 20.0 (55-70%)Rt. Atrium4.8 (1.9-4.0cm)Asc. Aorta cm IVSd1.2 (0.7-1.1cm)RV (D)4.2 (1.8-2.4cm) PWd1.3 (0.7-1.1cm) Mitral Valve MitralMitral Stenosis E wave1.54m/sMV Mean GR.mmHg E/A ratio0.02D MVAcm2 Aortic Valve Aortic ValveAortic Stenosis V10.80m/Jhon Mean GR.4mmHg V21.33m/Jhon Peak GR.7mmHg LVOT Diameter2.0 (1.8-2.4cm)Doppler AVA1.89cm2 Pulmonic Valve V20.98m/s Tricuspid Valve TR Velocity3.98m/s [id number] Conclusion Severely dilated left ventricle. There is moderate concentric left ventricular hypertrophy with Se verely reduced left ventricular systolic function, and an estimated ejection fraction of 20% in a lisseth bal fashion . There is septal bounce with a paradoxical motion likely due to underlying conduction a bnormality. There is a grade 1 diastolic dysfunction. Severely dilated right ventricle. Severely reduced right ventricular systolic function. Severely el evated right ventricular systolic [id number] mm of mercury. Biatrial severe dilatation of both right and left atria. The aortic valve is mildly thickened there is mild aortic valve regurgitation. There is severe torrential mitral valve regurgitation. There is moderately severe tricuspid valve regurgitation. There is moderate pulmonary valve regurgitation. No significant pericardial effusion was noted.
[2024-10-15 15:40] LABS: INR 1.08 (0.9-1.15); Prothrombin Time 11.4 sec (9.3-11.8)
--- NOTE | 2024-10-15 18:28 | ECG ---
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
--- NOTE | 2024-10-15 18:28 | ECG ---
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
[2024-10-15 19:45] VITALS: PULSE 79; RESP 22; O2SAT 95
[2024-10-15 21:34] LABS: INR 1.08 (0.9-1.15); Partial Thromboplastin Time 55.5 SEC (24.5-34.5); Prothrombin Time 11.4 sec (9.3-11.8)
[2024-10-15] MEDS: ATORVASTATIN 20 MG TAB PO SCH (22:23)
[2024-10-16 04:00] VITALS: PULSE 87; RESP 12; O2SAT 98
[2024-10-16 04:23] LABS: Basophils # (auto) 0.1 10 ^3/uL (0-0.2); Eosinophils # (auto) 0.1 10 ^3/uL (0-0.8); Eosinophils % (auto) 1.8 % (0.0-7.0); Hematocrit 44.6 % (36.0-46.0); Hemoglobin 15.1 g/dL (12.2-16.2); Lymphocytes # (auto) 2.3 10 ^3/uL (0.4-5.4); Lymphocytes % (auto) 27.5 % (10.0-50.0); Mean Corpuscular Hemoglobin 30.9 pg (28.0-32.0); Mean Corpuscular Hgb Conc. 33.9 g/dL (32.0-36.0); Monocytes # (auto) 0.5 10 ^3/uL (0-1.3); Monocytes % (auto) 6.4 % (0.0-12.0); Neutrophils # (auto) 5.2 10 ^3/uL (1.6-8.6); Neutrophils % (auto) 63.3 % (37.0-80.0); Platelet Count (auto) 254 10^3/uL (140-450); Red Cell Distribution Width 14.9 % (11.8-14.3); White Blood Cell 8.2 10^3/uL (4.4-10.8)
[2024-10-16 04:53] LABS: INR 1.08 (0.9-1.15); Partial Thromboplastin Time 38.2 SEC (24.5-34.5); Prothrombin Time 11.4 sec (9.3-11.8)
[2024-10-16 05:08] LABS: Amphetamine Screen, Urine Pos (NEGATIVE); Barbiturate Scree,Urine Neg (NEGATIVE); Benzodiazephine Screen, Urine Neg (NEGATIVE); Cannabinoid Screen, Urine Pos (NEGATIVE); Cocaine Screen, Urine Neg (NEGATIVE); Opiate Scree,Urine Neg (NEGATIVE); Phencyclidine Screen, Urine Neg (NEGATIVE)
[2024-10-16 05:11] LABS: Alanine Aminotransferase 39 U/L (7-40); Alkaline Phosphatase 96 U/L (46-116); Anion Gap 6 (5-15); BUN/Creatinine Ratio 11.6 (10.0-20.0); Bilirubin, Total 1.1 mg/dL (0.2-1.0); Blood Urea Nitrogen 10 mg/dL (9-23); Calcium 9.4 mg/dL (8.7-10.4); Carbon Dioxide 29 mmol/L (20-31); Chloride 104 mmol/L (98-107); Glucose 98 mg/dL (74-106); Potassium 4.3 mmol/L (3.5-5.1); Sodium 139 mmol/L (136-145)
[2024-10-16 05:14] LABS: Aspartate Aminotransferase 41 U/L (13-40)
[2024-10-16] MEDS: HEPARIN DRIP/D5W 100UNITS/ML 250 ML IV SCH (05:15)
[2024-10-16 05:34] LABS: Albumin 4.2 g/dL (3.2-4.8)
--- NOTE | 2024-10-16 05:40 | DVH ---
CHEST RADIOGRAPH Indication: chf Technique: Single frontal view of the chest was obtained COMPARISON: XY CHEST PORTABLE on DOS: 10/15/24, CHEST XRAY 1 VIEW on DOS: 06/04/21, CHEST PORTABLE on D OS: 06/03/21 FINDINGS: Lines and Tubes: None Lungs: Mild congestion Pleura: No effusion. No pneumothorax. Cardiomediastinal contours: Unremarkable Bones: Unremarkable IMPRESSION: Mild congestion, slightly improved.
[2024-10-16 05:42] LABS: Urine Amorphous Crystal FEW /hpf (None Seen); Urine Bacteria FEW /hpf (None Seen); Urine Blood Negative /uL (Negative); Urine Clarity Turbid (Clear); Urine Color Light-Orange (Yellow); Urine Mucus FEW (None Seen); Urine Protein, UAD TRACE (Negative); Urine Urobilinogen Normal (Negative); Urine WBC 18 /hpf (0 - 5)
[2024-10-16 11:37] VITALS: PULSE 79; RESP 19; O2SAT 97
[2024-10-16 11:56] VITALS: BP 123/79; PULSE 79; RESP 19; TEMP 98.3; O2SAT 97
[2024-10-16 12:10] LABS: INR 1.08 (0.9-1.15); Partial Thromboplastin Time 39.6 SEC (24.5-34.5); Prothrombin Time 11.4 sec (9.3-11.8)
[2024-10-16] MEDS ORDERED: HEPARIN DRIP/D5W 100UNITS/ML 250 ML IV SCH (14:15)
--- NOTE | 2024-10-16 15:09 | DVHPN2 ---
Subjective no chest pain Changes from previous H/P or p: No Changes Eyes: No Pain, No Vision change, No Conjunctivae inflammation, No Eyelid inflammation, No Other, No Redness ENT: No Ear pain, No Ear discharge, No Nose pain, No Nose discharge, No Nose congestion, No Mouth pain, No Mouth swelling, No Throat pain, No Throat swelling, No Other Cardiovascular: Chest Pain; No Palpitations, No Orthopnea, No Paroxysmal Noc. Dyspnea, No Edema, No Lt Headedness, No Other Respiratory: Cough; No Dry; Shortness of breath; No SOB with excertion, No Wheezing, No Hemoptysis, No Pleuritic Pain, No Sputum, No Other Gastrointestinal: No Nausea, No Vomiting, No Abdominal Pain, No Diarrhea, No Constipation, No Melena, No Hematochezia, No Other Genitourinary: No Dysuria, No Frequency, No Incontinence, No Hematuria, No Retention, No Other Musculoskeletal: No other, No neck pain, No shoulder pain, No arm pain, No back pain, No hand pain, No leg pain, No foot pain Skin: No Rash, No Lesions, No Jaundice, No Bruising, No Other Objective Vitals Vital Signs Date Time Temp Pulse Resp B/P (MAP) Pulse Ox O2 Delivery O2 Flow Rate FiO2 10/16/24 11:56 98.3 79 19 123/79 (94) 97 98.3 10/16/24 11:37 Room Air* 0 21 Intake/Output Intake and Output 10/16/24 05:00 Intake Total 201 ml Balance 201 ml Intake IV Total 201 ml General Appearance: Alert, Oriented X3 HEENT: EOMI Lungs: Clear to auscultation Cardiovascular: Regular rate, Normal S1, Normal S2 Abdomen: Normal bowel sounds Medications Current Medications Medications Dose Ordered Sig/Jose Route Start Time Stop Time Status Last Admin Dose Admin Aspirin 81 mg DAILY PO 10/15/24 10:00 10/16/24 08:57 81 MG Atorvastatin Calcium 40 mg HS PO 10/15/24 22:00 10/15/24 22:23 40 MG Morphine Sulfate 2 mg Q30MP PRN IV 10/15/24 08:15 Acetaminophen 650 mg Q6HP PRN PO 10/15/24 08:15 Lorazepam 0.5 mg Q6HP PRN PO 10/15/24 08:15 Docusate Sodium 100 mg DAILY PO 10/15/24 10:00 12/8/24 11:08 100 MG Nitroglycerin 0.4 mg Q5MINP PRN SL 10/15/24 08:15 Ondansetron HCl 4 mg Q4HP PRN IV 10/15/24 08:15 Furosemide 20 mg DAILY IV 10/15/24 10:00 10/15/24 11:09 20 MG Lisinopril 10 mg DAILY PO 10/15/24 10:00 10/16/24 08:58 10 MG Nicotine 1 patch DAILY TD 10/15/24 10:00 Hydralazine HCl 10 mg Q6HP PRN IV 10/15/24 08:15 Metoprolol Succinate 25 mg DAILY PO 10/15/24 10:00 10/16/24 08:57 25 MG Heparin Sodium/ Dextrose 250 ml @ 16 mls/hr [id number] IV 10/16/24 14:15 Laboratory Results Laboratory Tests 10/16/24 03:58 Chemistry Test 10/16/24 03:58 Albumin 4.2 g/dL (3.2-4.8) Calcium Level 9.4 mg/dL (8.7-10.4) Total Protein 7.0 g/dL (5.7-8.2) Coagulation Test 10/15/24 15:11 10/15/24 21:02 10/16/24 03:58 10/16/24 11:20 Prothrombin Time 11.4 sec (9.3-11.8) 11.4 sec (9.3-11.8) 11.4 sec (9.3-11.8) 11.4 sec (9.3-11.8) Prothrombin Time INR 1.08 (0.9-1.15) 1.08 (0.9-1.15) 1.08 (0.9-1.15) 1.08 (0.9-1.15) Activated Partial Thromboplast Time 28.0 SEC (24.5-34.5) 55.5 SEC (24.5-34.5) H 38.2 SEC (24.5-34.5) H 39.6 SEC (24.5-34.5) H LFT Test 10/16/24 03:58 Alanine Aminotransferase (ALT) 39 U/L (7-40) Alkaline Phosphatase 96 U/L (46-116) Aspartate Amino Transferase (AST) 41 U/L (13-40) H Total Bilirubin 1.1 mg/dL (0.2-1.0) H Urinalysis Test 10/16/24 04:20 Urine Color Light-orange (Yellow) Urine Clarity Turbid (Clear) H Urine pH 7.0 (5.0-9.0) Urine Specific [place] 1.020 (1.001-1.035) Urine Protein Trace (Negative) H Urine Ketones Trace (Negative) Urine Blood Negative /uL (Negative) Urine Nitrite Negative (Negative) Urine Bilirubin Negative (Negative) Urine Urobilinogen Normal mg/dL (Negative) Urine Leukocyte Esterase Trace /uL (Negative) Urine RBC 4 /hpf (0 - 4) Urine WBC 18 /hpf (0 - 5) Urine Squamous Epithelial Cells Few /hpf (<5) Urine Amorphous Crystals Few /hpf (None Seen) Urine Bacteria Few /hpf (None Seen) H Urine Mucus Few (None Seen) Urine Glucose Normal mg/dL (Normal) Urine Test Negative (Negative) Assessment/Plan Assessment/Plan # NSTEMI # ACS heparin drip per ACS protocol cardiology cx chest pain protocol asa, statin metoprolol trend troponin's monitor ekg 12 lead #Acute on chronic systolic HF, previous ECHO 40% 2020 #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
[2024-10-16 16:39] VITALS: BP 118/74; PULSE 82; RESP 20; TEMP 98.4; O2SAT 98
--- NOTE | 2024-10-16 19:39 | DVHINCON2 ---
Date Seen: Oct 16, 2024 Referring Physician KATIE Ramon Reason for Consultation NSTEMI History of Present Illness This is a 38-year-old female who presented to the emergency room via EMS with a chief complaint of chest pain for two days. Describes her chest pain as substernal, constant, pressure-like, and radiating to her neck area. She was medicated with NTG SL 0.4mg x 2 with relief of symptoms. Upon arrival to the e mergency room she underwent multiple subsequent 12 lead electrocardiogram revealing a sinus tachycardia rhythm with an associated right bundle branch block and left atrial fascicular block. The patient reports a medical history of coronary artery disease status post PTCA x5 OVIDIO at [facility] in 2017. States she stopped her Plavix therapy by an unknown provider during incarceration and secondary to gestation approximally six months ago. Denies taking any cardiac medications at this time. She also admits to a longstanding history of methamphetamine use with toxicology screen positive for amphetamines and cannabinoids. Other medical history includes congestive heart failure, hypertension, and tobacco use. Past Medical History Past medical history reviewed. No other significant than mentioned above. Past Surgical History C-sections x4 Family History: Patient reports no known family medical history. Family History Family history reviewed. Social History Admits to tobacco, cannabinoids, and methamphetamine use. Allergies: Coded Allergies: NO KNOWN ALLERGIES (Unverified , 03/28/17) Home Meds No Active Prescriptions or Reported Meds Home Meds Denies any home medications. Current Medications Current Medications Medications (Trade) Dose Ordered Sig/Jose Route PRN Reason Start Time Stop Time Status Last Admin Atorvastatin Calcium (Lipitor) 40 mg HS PO 10/15/24 22:00 10/15/24 22:23 Heparin Sodium/ Dextrose 250 ml @ 14 mls/hr [id number] IV 10/16/24 05:15 10/16/24 14:12 DC 10/16/24 05:15 Heparin Sodium/ Dextrose 250 ml @ 16 mls/hr [id number] IV 10/16/24 14:15 Review of Systems Constitutional: No symptom reported Ears, Nose, & Throat: No symptom reported Eyes: No symptom reported Neurological: No symptoms reported Pulmonary/Respiratory: No symptom reported Cardiovascular: Chest pain Gastrointestinal: No symptom reported Genitourinary: No symptom reported Musculoskeletal: No symptom reported Skin: No symptom reported Psychiatric: No symptom reported Endocrine: No symptom reported Hemotologic/Lymphatic: No symptom reported Vital Signs Vital Signs Date Time Temp Pulse Resp B/P (MAP) Pulse Ox O2 Delivery O2 Flow Rate FiO2 10/16/24 16:39 98.4 82 20 118/74 (89) 98 98.4 10/16/24 11:37 Room Air* 0 21 Physical Exam General Appearance: Cooperative. Disheveled. In no acute distress Head Exam: Normal inspection Neck Exam: Normal inspection. Non-tender. Normal alignment Pulmonary/Respiratory: Chest non-tender. Diminished bilateral breath sounds Cardiovascular/Chest: Regular rate and rhythm. S1, S2. Sinus rhythm with RBBB and LAFB. No murmurs. No JVD. Peripheral Pulses: 2+ Radial (R). 2+ Radial (L). 2+ Pedal (R). 2+ Pedal (L) Abdominal Exam: Normal bowel sounds. Soft. Nontender. No hepatospenomegaly. No masses Ankle Exam: Negative ankle edema Lower extremities: Negative lower extremity edema Neuro/Mental Status: A&O x4. Coherent Thoughts/Psych: Normal thought pattern. Somewhat anxious Appearance: Disheveled Skin Exam: Normal inspection. Normal color. Warm. Dry Labs/Diagnostic Data Labs Test 10/16/24 11:20 10/16/24 04:20 10/16/24 03:58 10/15/24 06:35 Range/Units Prothrombin Time 11.4 9.3-11.8 sec Prothrombin Time INR 1.08 0.9-1.15 Activated Partial Thromboplast Time 39.6 H 24.5-34.5 SEC Urine Color Light-orange Yellow Urine Clarity Turbid H Clear Urine pH 7.0 5.0-9.0 Urine Specific [place] 1.020 1.001-1.035 Urine Protein Trace H Negative Urine Ketones Trace Negative Urine Blood Negative Negative /uL Urine Nitrite Negative Negative Urine Bilirubin Negative Negative Urine Urobilinogen Normal Negative mg/dL Urine Leukocyte Esterase Trace Negative /uL Urine RBC 4 0 - 4 /hpf Urine WBC 18 0 - 5 /hpf Urine Squamous Epithelial Cells Few <5 /hpf Urine Amorphous Crystals Few None Seen /hpf Urine Bacteria Few H None Seen /hpf Urine Mucus Few None Seen Urine Glucose Normal Normal mg/dL Urine Test Negative Negative Urine Opiates Screen Neg NEGATIVE Urine Fentanyl Screen Neg NEGATIVE Urine Barbiturates Screen Neg NEGATIVE Urine Phencyclidine Screen Neg NEGATIVE Urine Amphetamines Screen Pos NEGATIVE Urine Benzodiazepines Screen Neg NEGATIVE Urine Cocaine Screen Neg NEGATIVE Urine Cannabinoids Screen Pos NEGATIVE White Blood Count 8.2 4.4-10.8 10^3/uL Red Blood Count 4.90 4.0-5.20 10^6/uL Hemoglobin 15.1 12.2-16.2 g/dL Hematocrit 44.6 # 36.0-46.0 % Mean Corpuscular Volume 91.0 80.0-100.0 fL Mean Corpuscular Hemoglobin 30.9 28.0-32.0 pg Mean Corpuscular Hemoglobin Concent 33.9 32.0-36.0 g/dL Red Cell Distribution Width 14.9 H 11.8-14.3 % Platelet Count 254 140-450 10^3/uL Mean Platelet Volume 8.2 6.9-10.8 fL Neutrophils (%) (Auto) 63.3 37.0-80.0 % Lymphocytes (%) (Auto) 27.5 10.0-50.0 % Monocytes (%) (Auto) 6.4 0.0-12.0 % Eosinophils (%) (Auto) 1.8 0.0-7.0 % Basophils (%) (Auto) 1.0 0.0-2.0 % Neutrophils # (Auto) 5.2 1.6-8.6 10 ^3/uL Lymphocytes # (Auto) 2.3 0.4-5.4 10 ^3/uL Monocytes # (Auto) 0.5 0-1.3 10 ^3/uL Eosinophils # (Auto) 0.1 0-0.8 10 ^3/uL Basophils # (Auto) 0.1 0-0.2 10 ^3/uL Nucleated Red Blood Cells 0.0 % Sodium Level 139 136-145 mmol/L Potassium Level 4.3 3.5-5.1 mmol/L Chloride Level 104 98-107 mmol/L Carbon Dioxide Level 29 20-31 mmol/L Anion Gap 6 5-15 Blood Urea Nitrogen 10 9-23 mg/dL Creatinine 0.86 0.550-1.02 mg/dL Glomerular Filtration Rate Calc 90 >90 mL/min BUN/Creatinine Ratio 11.6 10.0-20.0 Serum Glucose 98 74-106 mg/dL Calcium Level 9.4 8.7-10.4 mg/dL Total Bilirubin 1.1 H 0.2-1.0 mg/dL Aspartate Amino Transferase (AST) 41 H 13-40 U/L Alanine Aminotransferase (ALT) 39 7-40 U/L Alkaline Phosphatase 96 46-116 U/L Troponin I High Sensitivity 1929 *H </=34 ng/L Total Protein 7.0 5.7-8.2 g/dL Albumin 4.2 3.2-4.8 g/dL Hemoglobin A1c 5.2 <5.7 % A1C Magnesium Level 2.0 1.6-2.6 mg/dL Triglycerides Level 74 < 150 mg/dL Cholesterol Level 153 < 200 mg/dL LDL Cholesterol 93 < 100 mg/dL HDL Cholesterol 49 40-59 mg/dL Thyroid Stimulating Hormone (TSH) 3.78 0.55-4.78 uIU/mL Test 10/15/24 04:14 Range/Units B-Type Natriuretic Peptide 681.78 0-100 pg/mL Assessment Non ST-elevation myocardial infarction Coronary artery disease status post PTCA including 5DES, off antiplatelet therapy Ischemic/drug-induced/dilated cardiomyopathy with LVEF 20% Acute on chronic decompensated HFrEF, NYHA Class III Pulmonary hypertension, severe Mitral valve regurgitation, torrential Tricuspid valve regurgitation, severe Cannabinoid/methamphetamine/tobacco use Suboptimal medical therapy/medical noncompliance Plan/Recommendation (Dr. Golden) Case discussed with Dr. Golden. The patient with non-ST elevation myocardial infarction and significant cardiovascular history for coronary artery disease including five OVIDIO has been off antiplatelet therapy for approximately 5-6 months. We will initiate Plavix therapy including loading dose as well as daily maintenance, beta-guero, and lipid-lowering agent. She also underwent a transthoracic echocardiogram revealing a severely dilated left ventricle with LVEF of 20%, severely dilated right ventricle, RVSP 73 mmHg, biatrial severe dilatation of both right and left atrial, severe torrential mitral valve regurgitation, severe tricuspid valve regurgitation, and moderate pulmonary valve regurgitation. The patient will be initiated on GDMT for CHF, up-titrate as tolerated. Given poor medical compliance including polysubstance abuse, conservative management is warranted. We recommend outpatient follow-up with Cardiology and if deemed to be compliant she can be further assessed for ischemic processes. There is no further cardiac workup indicated at this time. Thank you for allowing us to participate in this patient's care. Please call if you have any questions or concerns. This medical document was created using an electronic medical record system with voice recognition software and computerized dictation system. Although this document has been carefully reviewed, there might still be some phonetic and typographical errors. Occasional wrong-word or ``sound-alike substitutions may have occurred due to the inherent limitations of voice recognition software. These areas are purely typographical due to imperfections of the software programs and do not reflect any compromise in the patient's medical care. Plea read the chart carefully and recognize, using context, where these substitutions have occurred. Plan discussed with: Patient, Other NYHA Physical activity limitations: Class3(Marked) ordinary (activity causes symtoms) Date of Service: Oct 16, 2024 Billing Provider: BLESSING GOLDEN MD Cardiology Common Codes: 85181-LSNBPDO INP/OBS CARE (High) PAULA DALE [facility] Oct 16, 2024 19:39
[2024-10-16 20:00] VITALS: PULSE 67; O2SAT 96
[2024-10-16] MEDS: CLOPIDOGREL BISULFATE 75 MG TAB PO ONE (20:07)
[2024-10-16] MEDS: CARVEDILOL 3.125 MG TAB PO SCH (20:13)
[2024-10-16] MEDS: FUROSEMIDE 100 MG/10ML VIAL IV ONE (20:15)
[2024-10-16] MEDS: ENOXAPARIN SOD 80 MG/0.8ML SYRINGE SC SCH (20:18)
[2024-10-16 21:00] VITALS: BP 122/78; PULSE 79; RESP 16; TEMP 97.6; O2SAT 96
[2024-10-17 01:00] VITALS: BP 134/80; PULSE 18; RESP 77; TEMP 97.6; O2SAT 96
[2024-10-17 05:00] VITALS: BP_SYST 140; BP_DIAS 47; BP_DIAS 87; PULSE 78; PULSE 80; RESP 18; O2SAT 100; O2SAT 94
[2024-10-17] MEDS: FUROSEMIDE 40 MG/4 ML VIAL IV SCH (06:00)
[2024-10-17 07:18] LABS: Basophils # (auto) 0.1 10 ^3/uL (0-0.2); Basophils % (auto) 0.8 % (0.0-2.0); Eosinophils # (auto) 0.1 10 ^3/uL (0-0.8); Eosinophils % (auto) 2.1 % (0.0-7.0); Hematocrit 43.1 % (36.0-46.0); Hemoglobin 14.9 g/dL (12.2-16.2); Lymphocytes # (auto) 1.4 10 ^3/uL (0.4-5.4); Lymphocytes % (auto) 19.9 % (10.0-50.0); Mean Corpuscular Hemoglobin 31.3 pg (28.0-32.0); Mean Corpuscular Hgb Conc. 34.5 g/dL (32.0-36.0); Mean Corpuscular Volume 90.9 fL (80.0-100.0); Monocytes # (auto) 0.4 10 ^3/uL (0-1.3); Monocytes % (auto) 6.1 % (0.0-12.0); Neutrophils # (auto) 5.2 10 ^3/uL (1.6-8.6); Neutrophils % (auto) 71.1 % (37.0-80.0); Nucleated Red Blood Cells % 0.1 %; Platelet Count (auto) 214 10^3/uL (140-450); Red Blood Cells 4.74 10^6/uL (4.0-5.20); Red Cell Distribution Width 14.3 % (11.8-14.3); White Blood Cell 7.3 10^3/uL (4.4-10.8)
[2024-10-17 08:00] VITALS: PULSE 73
[2024-10-17 09:00] VITALS: BP 138/73; PULSE 83; RESP 18; TEMP 97.8; O2SAT 95
[2024-10-17] MEDS ORDERED: EMPA1TAB PO (10:40)
[2024-10-17] MEDS ORDERED: CLOP75TA70 PO (10:40)
[2024-10-17] MEDS ORDERED: LISI-275 PO (10:40)
[2024-10-17] MEDS ORDERED: SPIR25TA PO (10:40)
[2024-10-17] MEDS ORDERED: CARV-214 PO (10:40)
[2024-10-17] MEDS ORDERED: ASPI-325 PO (10:40)
[2024-10-17] MEDS ORDERED: ATOR20TA50 PO (10:40)
[2024-10-17] MEDS: SPIRONOLACTONE 25 MG TAB PO SCH (11:13)
[2024-10-17] MEDS: EMPAGLIFLOZIN 10 MG TAB PO SCH (11:15)
[2024-10-17] MEDS: CLOPIDOGREL BISULFATE 75 MG TAB PO SCH (11:16)
[2024-10-17 13:00] VITALS: BP 132/77; PULSE 84; RESP 18; TEMP 98; O2SAT 96
--- NOTE | 2024-11-02 21:59 | DVHDS2 ---
Discharge Summary Date of Admission Oct 15, 2024 at 08:09 Date of Discharge: Oct 17, 2024 Labs/Diagnostic Data: Laboratory Results Test 10/17/24 06:19 10/16/24 11:20 10/16/24 04:20 10/16/24 03:58 White Blood Count 7.3 10^3/uL (4.4-10.8) Red Blood Count 4.74 10^6/uL (4.0-5.20) Hemoglobin 14.9 g/dL (12.2-16.2) Hematocrit 43.1 % (36.0-46.0) Mean Corpuscular Volume 90.9 fL (80.0-100.0) Mean Corpuscular Hemoglobin 31.3 pg (28.0-32.0) Mean Corpuscular Hemoglobin Concent 34.5 g/dL (32.0-36.0) Red Cell Distribution Width 14.3 % (11.8-14.3) Platelet Count 214 10^3/uL (140-450) Mean Platelet Volume 8.7 fL (6.9-10.8) Neutrophils (%) (Auto) 71.1 % (37.0-80.0) Lymphocytes (%) (Auto) 19.9 % (10.0-50.0) Monocytes (%) (Auto) 6.1 % (0.0-12.0) Eosinophils (%) (Auto) 2.1 % (0.0-7.0) Basophils (%) (Auto) 0.8 % (0.0-2.0) Neutrophils # (Auto) 5.2 10 ^3/uL (1.6-8.6) Lymphocytes # (Auto) 1.4 10 ^3/uL (0.4-5.4) Monocytes # (Auto) 0.4 10 ^3/uL (0-1.3) Eosinophils # (Auto) 0.1 10 ^3/uL (0-0.8) Basophils # (Auto) 0.1 10 ^3/uL (0-0.2) Nucleated Red Blood Cells 0.1 % Prothrombin Time 11.4 sec (9.3-11.8) Prothrombin Time INR 1.08 (0.9-1.15) Activated Partial Thromboplast Time 39.6 SEC (24.5-34.5) Urine Color Light-orange (Yellow) Urine Clarity Turbid (Clear) Urine pH 7.0 (5.0-9.0) Urine Specific [place] 1.020 (1.001-1.035) Urine Protein Trace (Negative) Urine Ketones Trace (Negative) Urine Blood Negative /uL (Negative) Urine Nitrite Negative (Negative) Urine Bilirubin Negative (Negative) Urine Urobilinogen Normal mg/dL (Negative) Urine Leukocyte Esterase Trace /uL (Negative) Urine RBC 4 /hpf (0 - 4) Urine WBC 18 /hpf (0 - 5) Urine Squamous Epithelial Cells Few /hpf (<5) Urine Amorphous Crystals Few /hpf (None Seen) Urine Bacteria Few /hpf (None Seen) Urine Mucus Few (None Seen) Urine Glucose Normal mg/dL (Normal) Urine Test Negative (Negative) Urine Opiates Screen Neg (NEGATIVE) Urine Fentanyl Screen Neg (NEGATIVE) Urine Barbiturates Screen Neg (NEGATIVE) Urine Phencyclidine Screen Neg (NEGATIVE) Urine Amphetamines Screen Pos (NEGATIVE) Urine Benzodiazepines Screen Neg (NEGATIVE) Urine Cocaine Screen Neg (NEGATIVE) Urine Cannabinoids Screen Pos (NEGATIVE) Sodium Level 139 mmol/L (136-145) Potassium Level 4.3 mmol/L (3.5-5.1) Chloride Level 104 mmol/L (98-107) Carbon Dioxide Level 29 mmol/L (20-31) Anion Gap 6 (5-15) Blood Urea Nitrogen 10 mg/dL (9-23) Creatinine 0.86 mg/dL (0.550-1.02) Glomerular Filtration Rate Calc 90 mL/min (>90) BUN/Creatinine Ratio 11.6 (10.0-20.0) Serum Glucose 98 mg/dL (74-106) Calcium Level 9.4 mg/dL (8.7-10.4) Total Bilirubin 1.1 mg/dL (0.2-1.0) Aspartate Amino Transferase (AST) 41 U/L (13-40) Alanine Aminotransferase (ALT) 39 U/L (7-40) Alkaline Phosphatase 96 U/L (46-116) Troponin I High Sensitivity 1929 ng/L (</=34) Total Protein 7.0 g/dL (5.7-8.2) Albumin 4.2 g/dL (3.2-4.8) Test 10/15/24 06:35 10/15/24 04:14 Hemoglobin A1c 5.2 % A1C (<5.7) Magnesium Level 2.0 mg/dL (1.6-2.6) Triglycerides Level 74 mg/dL (< 150) Cholesterol Level 153 mg/dL (< 200) LDL Cholesterol 93 mg/dL (< 100) HDL Cholesterol 49 mg/dL (40-59) Thyroid Stimulating Hormone (TSH) 3.78 uIU/mL (0.55-4.78) B-Type Natriuretic Peptide 681.78 pg/mL (0-100) Other Laboratory Tests 10/17/24 06:19 10/16/24 03:58 Brief Hx & Hospital Course: Estefani Saha is a 38-year-old female with past medical history of hypertension and CAD status post PCI x5 presents to the ED with chest pain, cough, and shortness of breath x2 days. Patient reports her chest pain as an 8/10 nonradiating. Patient reports that she used methamphetamine yesterday and she has been noncompliant with her medications for the last 5-6 months. Patient reports that she has no insurance which is why she has not been able to obtain her medications and take her medications. Patient denies fever, chills, abdominal pain, back pain, nausea, vomiting, headache, lightheadedness and dizziness. Condition at Discharge: Good Final Diagnosis/Problems List # NSTEMI #Acute on chronic systolic HF, previous ECHO 40% 2020 #Cardiomyopathy likely 2nd to meth use # CAD s/p PCI #HTN #methamphetamine abuse #tobacco dependence #medical noncompliance #overweight #Acute hypoxic respiratory failure rulet out on xray Discharge Disposition: Home Discharge Instruct/Medications Diet: Regular Activity: No Restrictions, As Tolerated Discharge Statement: "Patient was advised to return to the ER or call 911 if any headaches, dizziness, shortness of breath, chest pain, abdominal pain, bleeding, fevers, or worsening of medical condition. Patient was counseled about treatment plan, medications, possible side effects, patientverbalized understanding. All questions were answered to the best of my ability. This discharge took greater then 30 minutes in planning, reviewing documentation, counseling the patient, and discussing with other team members." ASSESSMENT ASSESSMENT Assessment Date of Service: Oct 17, 2024 Billing Provider: JAROCHO CLANCY MD Common Visit Codes: 23237-HZZ/OBS DISCH DAY >30min JAROCHO CLANCY MD Nov 02, 2024 21:59
== END 2024-10-17 16:00 | disposition home or self-care (01) | DRG 190 ==
LOC: EDBD 04:06 → ER 04:06 → TELE 08:09 → TELE-EAST 10-16 11:36
PROVIDERS: ATTEND Hospitalist
DX: I21.4 Non-ST elevation (NSTEMI) myocardial infarction (principal); I50.23 Acute on chronic systolic (congestive) heart failure; I27.20 Pulmonary hypertension, unspecified; I42.7 Cardiomyopathy due to drug and external agent; I11.0 Hypertensive heart disease with heart failure; E78.5 Hyperlipidemia, unspecified; E66.3 Overweight; F15.10 Other stimulant abuse, uncomplicated; F17.200 Nicotine dependence, unspecified, uncomplicated; I08.1 Rheumatic disorders of both mitral and tricuspid valves; I25.10 Atherosclerotic heart disease of native coronary artery without angina pectoris; I45.2 Bifascicular block; R00.0 Tachycardia, unspecified; T43.655A Adverse effect of methamphetamines, initial encounter; Z82.49 Family history of ischemic heart disease and other diseases of the circulatory system; Z91.148 Patient's other noncompliance with medication regimen for other reason; Z98.61 Coronary angioplasty status; Z91.199 Patient's noncompliance with other medical treatment and regimen due to unspecified reason; Z71.51 Drug abuse counseling and surveillance of drug abuser; Y92.89 Other specified places as the place of occurrence of the external cause; Z68.25 Body mass index [BMI] 25.0-25.9, adult
CPT/HCPCS: 36415; 71045; 80048; 80053; 80061; 80307; 81001; 81025; 83036; 83735; 83880; 84443; 84484; 85025; 85610; 85730; 93005; 93306; 99291; G0378